=== PATIENT | female | born 1975 | race Caucasian/White ===

== ENCOUNTER 2022-09-07 18:18 | Emergency (ER) | payer BC ==
[2022-09-07 18:26] VITALS: BMI 35.2
[2022-09-07] MEDS ORDERED: METOCLOPRAMIDE HCL INJECTION 10 MG/2 ML VIAL IVPUSH ONE (20:42)
[2022-09-07] MEDS ORDERED: ACETAMINOPHEN 1000 MG/100 ML BAG IVPB ONE (20:42)
[2022-09-07] MEDS ORDERED: ASPIRIN 81 MG CHEWABLE TABLETS PO ONE ×2 (20:42→22:17)
[2022-09-07] MEDS ORDERED: LABETALOL HCL 5 MG/1 ML (100MG/20 ML VIAL) IVPUSH ONE (20:43)
[2022-09-07] MEDS ORDERED: LABETALOL HCL 5 MG/1 ML (100MG/20 ML VIAL) ONE (21:14)
[2022-09-07] MEDS ORDERED: ACETAMINOPHEN INJECTION 100 ML IVPB ONE (21:14)
[2022-09-07] MEDS ORDERED: METOCLOPRAMIDE HCL INJECTION 10 MG/2 ML VIAL ONE (21:14)
[2022-09-07 22:10] VITALS: BP 146/76; PULSE 75; RESP 16; TEMP 98.8
[2022-09-07 22:19] LABS: BASO % 1.1 % (0-2.0); HEMATOCRIT 39.3 % (32.4-45.2); HEMOGLOBIN 13.3 GM/dL (10.7-15.3); LYMPH % 41.5 % (8-40); MCH 31.6 pg (25.7-33.7); MCHC 33.9 g/dl (32.0-36.0); MEAN CELL VOLUME 93.1 fl (80-96); MEAN PLT VOLUME 10.6 fl (7.5-11.1); MONO % 6.8 % (3.8-10.2); NEUT % 47.6 % (42.8-82.8); PLATELET COUNT 257 10^3/uL (134-434); RBC 4.22 M/mm3 (3.60-5.2); RDW 13.2 % (11.6-15.6)
[2022-09-07] MEDS ORDERED: ASPIRIN 81 MG CHEWABLE TABLETS ONE (22:19)
[2022-09-07 22:28] LABS: INR 1.03 (0.83-1.09); PROTHROMBIN TIME (PATIENT) 11.9 SEC (9.7-13.0)
[2022-09-07 22:30] LABS: ACTIVATED PTT 37.7 SECONDS (25.2-36.5)
[2022-09-07 22:42] LABS: ALBUMIN 4.1 g/dl (3.4-5.0); BLOOD UREA NITROGEN 14.3 mg/dL (7-18); CALCIUM 10.2 mg/dL (8.5-10.1)
[2022-09-07 22:45] LABS: CREATININE 0.8 mg/dL (0.55-1.3)
[2022-09-07 22:47] LABS: BILIRUBIN,TOTAL 0.8 mg/dL (0.2-1)
== END 2022-09-08 01:20 | disposition home or self-care (01) ==
LOC: JER 18:18
PROC: 3E033GC Introduction of Other Therapeutic Substance into Peripheral Vein, Percutaneous Approach (ICD-10-PCS; principal; 2022-09-07)
DX: R07.9 Chest pain, unspecified (principal); I10 Essential (primary) hypertension
CPT/HCPCS: 36415; 70450-TC; 71046-TC-FY; 80053; 83735; 84484; 85025; 85610; 85730; 93005; 93010; 99285-25; C9803-CS; U0003; U0005